=== PATIENT | male | born 1980 | race Caucasian/White ===

== ENCOUNTER 2021-12-11 08:40 | Observation (INO) | payer BC ==
[2021-12-10 11:10] LABS: BASOPHILS % 0.4 % (0.0-1.0); EOSINOPHILS # (AUTO) 0.1 (0.0-0.4); EOSINOPHILS % 1.1 % (0.0-6.0); HEMATOCRIT 48.4 % (38.2-49.6); HEMOGLOBIN 15.8 g/dL (14.0-18.0); LYMPHOCYTES # (AUTO) 2.2 (1.0-3.2); LYMPHOCYTES % 28.1 % (18.0-39.1); MEAN CORPUSCULAR HEMOGLOBIN 28.4 pg (28-32); MEAN CORPUSCULAR HGB CONC 32.6 g/dL (31-35); MEAN CORPUSCULAR VOLUME 87.1 fL (81-99); MONOCYTES # (AUTO) 0.4 (0.2-0.8); MONOCYTES % 5.6 % (4.4-11.3); NEUTROPHILS # (AUTO) 5.1 (2.1-6.9); NEUTROPHILS % 64.7 % (38.7-80.0); PLATELET COUNT 273 x10e3/uL (140-360); RED BLOOD COUNT 5.56 x10e6/uL (4.3-5.7); RED CELL DISTRIBUTION WIDTH 13.6 % (11.7-14.4)
[2021-12-10 11:42] LABS: INR 0.89; PROTHROMBIN TIME 12.9 seconds (11.9-14.5)
[2021-12-10 11:43] LABS: PARTIAL THROMBOPLASTIN TIME 25.2 seconds (23.8-35.5)
[2021-12-10 11:49] LABS: ANION GAP 13.6 mmol/L (8-16); CALCIUM 9.4 mg/dL (8.4-10.2); CREATININE, SERUM 0.97 mg/dL (0.72-1.25); POTASSIUM 4.6 mmol/L (3.5-5.1)
[~2021-12-11] VITALS: Ht 180.3 cm; Wt 102.1 kg
[~2021-12-11 08:40] MED LIST: FARXIGA10 MG PO; GABAPENTIN300 MG PO; JANUVIA100 MG PO; LIDOCAINE 1% W/EPINEPHRINE 20 ML VIAL ONE; LIPITOR10 MG PO; NAPROXEN250 MG PO; RYBELSUS14 MG PO; THROMBIN FOR SOLN 5,000 UNIT VIAL ONE; Vancomycin IV 1 GM VIAL ONE
[2021-12-11] MEDS ORDERED: LIDOCAINE HCL (LTA) 4 ML SOLN ONE (10:02)
[2021-12-11] MEDS ORDERED: ACETAMINOPHEN 1000 MG/100 ML IV ONE (10:02)
[2021-12-11] MEDS ORDERED: SEVOFLURANE INHAL SOLN 250 ML PEN BTL ONE (10:02)
[2021-12-11] MEDS ORDERED: IBUPROFEN 800 MG/200 ML BAG IV ONE (10:02)
[2021-12-11] MEDS ORDERED: DEXAMETHASONE SOD PHOS INJ 4 MG/ML SDV ONE (10:02)
[2021-12-11] MEDS ORDERED: ONDANSETRON HCL INJ 2MG/ML 2ML 2 MG/ML VIAL ONE (10:02)
[2021-12-11] MEDS ORDERED: MIDAZOLAM HCL 2 MG/2 ML VIAL ONE (10:02)
[2021-12-11] MEDS ORDERED: ROCURONIUM BROMIDE 10 MG/ML 5ML VIAL IV ONE (10:02)
[2021-12-11] MEDS ORDERED: PROPOFOL IV EMULSION 10 MG/ML 20 ML VIAL ONE (10:02)
[2021-12-11] MEDS ORDERED: FENTANYL CITRATE/PF 100MCG/2 ML INJ ONE (10:02)
[2021-12-11] MEDS ORDERED: POVIDONE IODINE 0.05% 0.05 % ML PO ONE (10:02)
[2021-12-11] MEDS ORDERED: SUGAMMADEX SODIUM 200 MG/2 ML VIAL IV ONE (10:02)
[2021-12-11] MEDS ORDERED: LIDOCAINE HCL 2% LOCAL INJ 5 ML SDV VIAL INJ ONE (10:02)
[2021-12-11] MEDS ORDERED: HYDROCODON-ACE1 EA12 PO (11:43)
[2021-12-11] MEDS ORDERED: ZOLPIDEM TARTRATE 5 MG TAB PO PRN (11:45)
[2021-12-11] MEDS ORDERED: PROMETHAZINE HCL (IM) 25 MG/ML VIAL IM PRN (11:45)
[2021-12-11] MEDS ORDERED: MORPHINE SULFATE 5 MG/ML VIAL IM PRN (11:45)
[2021-12-11] MEDS ORDERED: ACETAMINOPHEN 325 MG TAB PO PRN (11:45)
[2021-12-11] MEDS ORDERED: MAGNESIUM/ALUMINUM/SIMETHICONE 30 ML UDC PO PRN (11:45)
[2021-12-11] MEDS: LACTATED RINGER'S 1,000 ML IV SCH ×2 (11:45→17:43)
[2021-12-11] MEDS ORDERED: NAPROXEN 250 MG TAB PO PRN (11:45)
[2021-12-11] MEDS ORDERED: CARISOPRODOL 350 MG TAB PO PRN (11:45)
[2021-12-11] MEDS ORDERED: ONDANSETRON HCL INJ 2MG/ML 2ML 2 MG/ML VIAL IV PRN (11:45)
[2021-12-11] MEDS ORDERED: HYDROMORPHONE 2MG/ML 2 MG/ML ML IV PRN (11:45)
[2021-12-11] MEDS ORDERED: CEPACOL SORE THROAT LOZENGES PO PRN (11:45)
[2021-12-11 12:54] VITALS: BP 123/81
[2021-12-11 12:55] VITALS: BP 123/81
[2021-12-11 13:11] VITALS: BP 123/81
[2021-12-11 14:58] LABS: BASOPHILS % 0.3 % (0.0-1.0); EOSINOPHILS % 0.1 % (0.0-6.0); HEMATOCRIT 48.5 % (38.2-49.6); HEMOGLOBIN 15.9 g/dL (14.0-18.0); LYMPHOCYTES # (AUTO) 1.1 (1.0-3.2); LYMPHOCYTES % 8.1 % (18.0-39.1); MEAN CORPUSCULAR HEMOGLOBIN 28.2 pg (28-32); MEAN CORPUSCULAR HGB CONC 32.8 g/dL (31-35); MEAN CORPUSCULAR VOLUME 86.1 fL (81-99); MONOCYTES # (AUTO) 0.1 (0.2-0.8); NEUTROPHILS % 90.1 % (38.7-80.0); PLATELET COUNT 266 x10e3/uL (140-360); RED BLOOD COUNT 5.63 x10e6/uL (4.3-5.7); RED CELL DISTRIBUTION WIDTH 13.5 % (11.7-14.4)
[2021-12-11 15:10] LABS: INR 0.89; PARTIAL THROMBOPLASTIN TIME 29.1 seconds (23.8-35.5); PROTHROMBIN TIME 12.9 seconds (11.9-14.5)
[2021-12-11 15:15] LABS: ANION GAP 16.3 mmol/L (8-16); CREATININE, SERUM 1.17 mg/dL (0.72-1.25); POTASSIUM 4.3 mmol/L (3.5-5.1)
[2021-12-11] MEDS: OXYCODONE/ACETAMINOPHEN 5-325 1 EACH TABLET PO PRN (15:29)
[2021-12-11 15:54] VITALS: BP 130/73
[2021-12-11] MEDS: GABAPENTIN 300 MG CAP PO SCH (17:00)
[2021-12-11 20:00] VITALS: BP 128/80
[2021-12-11] MEDS ORDERED: DEXTROSE 50% SYRINGE 50 ML IV PRN (20:30)
[2021-12-11] MEDS: INSULIN LISPRO 100 UNIT/1 ML 3ML VIAL SQ SCH (20:52)
[2021-12-11 21:00] VITALS: BP 128/80
[2021-12-11] MEDS ORDERED: ATORVASTATIN 10 MG TAB PO SCH (21:00)
[2021-12-12] VITALS: BP 124/74
[2021-12-12 04:00] VITALS: BP 108/61
[2021-12-12] MEDS: LACTATED RINGER'S 1,000 ML IV SCH (04:25)
[2021-12-12] MEDS: INSULIN LISPRO 100 UNIT/1 ML 3ML VIAL SQ SCH (07:30)
[2021-12-12 08:21] VITALS: BP 122/73
[2021-12-12] MEDS ORDERED: SITAGLIPTIN 100 MG TAB PO SCH (09:00)
[2021-12-12] MEDS: GABAPENTIN 300 MG CAP PO SCH (09:00)
[2021-12-12] MEDS: OXYCODONE/ACETAMINOPHEN 5-325 1 EACH TABLET PO PRN (09:50)
[2021-12-12 11:01] VITALS: BP 122/73
== END 2021-12-12 11:25 | disposition home or self-care (01) ==
LOC: OR 08:40 → PACU V 11:42 → MED/SURG 12:32
PROVIDERS: ADMIT Neurological Surgery; ATTEND Neurological Surgery
DX: M51.17 Intervertebral disc disorders with radiculopathy, lumbosacral region (principal); E11.9 Type 2 diabetes mellitus without complications; K21.9 Gastro-esophageal reflux disease without esophagitis; E78.5 Hyperlipidemia, unspecified; Z87.891 Personal history of nicotine dependence; Z01.810 Encounter for preprocedural cardiovascular examination; Z01.812 Encounter for preprocedural laboratory examination; Z01.818 Encounter for other preprocedural examination; Z20.822 Contact with and (suspected) exposure to COVID-19
CPT/HCPCS: 36415 ×3; 63047; 71046; 72020; 80048 ×2; 82948 ×2; 85025 ×2; 85610 ×2; 85730 ×2; 86850; 86900; 88304; 88311; 93005; G0378 ×2; J0131; J0690 ×2; J1100; J1170; J2001; J2250; J2405; J2704; J3010; J3370; J7121 ×2; U0002